=== PATIENT | male | born 1955 | race Caucasian/White ===

== ENCOUNTER 2021-11-24 10:10 | Emergency (ER) | payer OTHER ==
[~2021-11-24] VITALS: Ht 195.6 cm; Wt 117.9 kg
[2021-11-24] MEDS ORDERED: METFORMIN HCL1000 M1 PO (15:00)
[2021-11-24] MEDS ORDERED: LISINOPRIL10 MG PO (15:01)
[2021-11-24] MEDS ORDERED: SIMVASTATIN20 MG PO (15:01)
[2021-11-24] MEDS ORDERED: GLIMEPIRIDE4 MG PO (15:02)
[2021-11-24] MEDS ORDERED: PIOGLITAZONE HC30 MG PO (15:02)
[2021-11-24] MEDS ORDERED: CEPHALEXIN500 M1 PO (15:08)
== END 2021-11-24 15:26 | disposition home or self-care (01) ==
LOC: ED 10:10
DX: L03.115 Cellulitis of right lower limb (principal)
CPT/HCPCS: 10060; 99283-25; A9270